=== PATIENT | female | born 1940 | race Caucasian/White ===

== ENCOUNTER 2018-08-10 05:56 | Day surgery (SDC) | payer MEDICARE ==
[2018-08-09 12:48] VITALS: BP 153/82
[~2018-08-10] VITALS: Ht 158.8 cm; Wt 61.2 kg
[~2018-08-10 05:56] MED LIST: ALBU18HF INFIL; ASCO10004 PO; CALC-483 PO; FISH1CAP PO; LACT1CAP37 PO; LEVO88TA2 PO; LIDOCAINE 4% TOPICAL SOLUTION 50 ML ONE; LIDOCAINE GEL 2%, 5ML ONE; LOSA50TA14 PO; VITA400C42 PO
[2018-08-10 06:42] VITALS: BP 153/82
[2018-08-10] MEDS ORDERED: MIDAZOLAM 1 MG/ML, 5ML ONE ×2 (07:19)
[2018-08-10] MEDS ORDERED: FENTANYL PF 100 MCG/2ML ONE (07:19)
[2018-08-10 07:45] LABS: INTERNATIONAL NORMALIZED RATIO 0.97 (0.93-1.1); PROTHROMBIN TIME 10.2 Seconds (9.6-11.5)
== END 2018-08-10 10:45 | disposition home or self-care (01) ==
LOC: OUT 05:56
PROVIDERS: ATTEND Internal Medicine
DX: C34.2 Malignant neoplasm of middle lobe, bronchus or lung (principal); I10 Essential (primary) hypertension; E11.9 Type 2 diabetes mellitus without complications; E78.5 Hyperlipidemia, unspecified; E03.9 Hypothyroidism, unspecified; Z72.89 Other problems related to lifestyle; Z79.01 Long term (current) use of anticoagulants; Z79.890 Hormone replacement therapy; Z79.899 Other long term (current) drug therapy; Z88.8 Allergy status to other drugs, medicaments and biological substances; Z82.61 Family history of arthritis; Z83.3 Family history of diabetes mellitus
CPT/HCPCS: 31624; 36415; 85610; 85730; 87015; 87070; 87102; 87116; 87205; 87206; 88112; 88305; 88312; 88341; 88342; 93005; 99152; 99153; J2250; J3010; 31622; 88108

== ENCOUNTER 2018-09-01 07:28 | Outpatient (CLI) | payer MEDICARE ==
[~2018-09-01 07:28] MED LIST changes: -LIDOCAINE 4% TOPICAL SOLUTION 50 ML ONE; -LIDOCAINE GEL 2%, 5ML ONE
[2018-09-01] MEDS ORDERED: GADOBUTROL 7.5 MMOL/7.5 ML PFS ONE (08:38)
== END 2018-09-01 23:59 | disposition home or self-care (01) ==
LOC: CFH 07:28
PROVIDERS: ATTEND Internal Medicine
DX: C34.2 Malignant neoplasm of middle lobe, bronchus or lung (principal); D32.0 Benign neoplasm of cerebral meninges; G93.0 Cerebral cysts; G31.9 Degenerative disease of nervous system, unspecified; R90.82 White matter disease, unspecified; I67.82 Cerebral ischemia
CPT/HCPCS: 70553; 78815; A9552; A9585

== ENCOUNTER 2018-09-13 10:23 | Outpatient (CLI) | payer MEDICARE ==
[2018-09-13] MEDS ORDERED: OMNIPAQUE 350 MG/ML, 75ML BOTTLE ONE (15:29)
== END 2018-09-13 23:59 | disposition home or self-care (01) ==
LOC: CFH 10:23
PROVIDERS: ATTEND Internal Medicine Hematology & Oncology
DX: C34.11 Malignant neoplasm of upper lobe, right bronchus or lung (principal); J98.11 Atelectasis; R91.8 Other nonspecific abnormal finding of lung field
CPT/HCPCS: 71260; Q9967

== ENCOUNTER 2018-09-14 05:37 | Day surgery (SDC) | payer MEDICARE ==
[~2018-09-14] VITALS: Ht 160 cm; Wt 60.0 kg
[2018-09-14 06:15] VITALS: BP 135/80
== END 2018-09-14 13:05 | disposition home or self-care (01) ==
LOC: OUT 05:37
PROVIDERS: ATTEND Internal Medicine
DX: C34.2 Malignant neoplasm of middle lobe, bronchus or lung (principal); I10 Essential (primary) hypertension; E11.9 Type 2 diabetes mellitus without complications; E03.9 Hypothyroidism, unspecified; Z79.890 Hormone replacement therapy; Z79.899 Other long term (current) drug therapy; Z88.2 Allergy status to sulfonamides; Z88.8 Allergy status to other drugs, medicaments and biological substances; Z91.041 Radiographic dye allergy status
CPT/HCPCS: 31623; 31627; 31628; 31632; 71045; 88112; 88172; 88173; 88177; 88305; J0330; J0690; J1100; J2405; J2704; J2710; J3010; J7120; 31629; 76000

== ENCOUNTER 2018-09-29 16:51 | Outpatient (CLI) | payer MEDICARE | END 2018-09-29 23:59 | disposition home or self-care (01) | LOC: CARD 16:51 | PROVIDERS: ATTEND Internal Medicine Hematology & Oncology | DX: C34.2 Malignant neoplasm of middle lobe, bronchus or lung (principal); R94.31 Abnormal electrocardiogram [ECG] [EKG] | CPT/HCPCS: 93005 ==

== ENCOUNTER 2018-10-03 15:24 | Outpatient (CLI) | payer MEDICARE | END 2018-10-03 23:59 | disposition home or self-care (01) | LOC: CFH 15:24 | PROVIDERS: ATTEND Internal Medicine Hematology & Oncology | DX: I08.2 Rheumatic disorders of both aortic and tricuspid valves (principal); I10 Essential (primary) hypertension; C34.2 Malignant neoplasm of middle lobe, bronchus or lung | CPT/HCPCS: 93306 ==

== ENCOUNTER 2019-01-02 13:06 | Outpatient (CLI) | payer MEDICARE | END 2019-01-02 23:59 | disposition home or self-care (01) | LOC: CFH 13:06 | PROVIDERS: ATTEND Internal Medicine Hematology & Oncology | DX: C34.2 Malignant neoplasm of middle lobe, bronchus or lung (principal); K76.89 Other specified diseases of liver; N85.2 Hypertrophy of uterus; Z91.041 Radiographic dye allergy status; Z88.8 Allergy status to other drugs, medicaments and biological substances | CPT/HCPCS: 71250; 74176 ==

== ENCOUNTER → 2019-03-20 | Outpatient (CLI) | payer MEDICARE ==
[~2019-03-20] MED LIST changes: +GADOTERATE 7.5 MMOL/15 ML SYR ONE; +VITA-74 PO; -VITA400C42 PO
== END | disposition home or self-care (01) ==
LOC: CFH 12:47
PROVIDERS: ATTEND Internal Medicine Hematology & Oncology
DX: C34.2 Malignant neoplasm of middle lobe, bronchus or lung (principal); D32.0 Benign neoplasm of cerebral meninges; G31.9 Degenerative disease of nervous system, unspecified; I67.82 Cerebral ischemia; R94.02 Abnormal brain scan
CPT/HCPCS: 70553; A9575

== ENCOUNTER → 2019-04-03 | Outpatient (CLI) | payer MEDICARE ==
[~2019-04-03] MED LIST changes: -GADOTERATE 7.5 MMOL/15 ML SYR ONE
== END | disposition home or self-care (01) ==
LOC: CFH 09:32
PROVIDERS: ATTEND Internal Medicine Hematology & Oncology
DX: C34.2 Malignant neoplasm of middle lobe, bronchus or lung (principal); K80.20 Calculus of gallbladder without cholecystitis without obstruction; I72.2 Aneurysm of renal artery; N28.89 Other specified disorders of kidney and ureter; J47.9 Bronchiectasis, uncomplicated; J98.11 Atelectasis
CPT/HCPCS: 71250; 74176

== ENCOUNTER → 2019-08-24 | Outpatient (CLI) | payer MEDICARE ==
[~2019-08-24] MED LIST changes: +OMNIPAQUE 350 MG/ML, 100ML BOTTLE ONE
== END | disposition home or self-care (01) ==
LOC: CFH 11:14
PROVIDERS: ATTEND Internal Medicine Hematology & Oncology
DX: C34.2 Malignant neoplasm of middle lobe, bronchus or lung (principal); K76.89 Other specified diseases of liver; K80.20 Calculus of gallbladder without cholecystitis without obstruction; I72.2 Aneurysm of renal artery; D25.9 Leiomyoma of uterus, unspecified; J98.11 Atelectasis; J47.9 Bronchiectasis, uncomplicated; R91.8 Other nonspecific abnormal finding of lung field
CPT/HCPCS: 71260; 74177; Q9967

== ENCOUNTER → 2019-11-29 | Outpatient (CLI) | payer MEDICARE ==
[~2019-11-29] MED LIST changes: +ASCO100018 PO; -ASCO10004 PO; -OMNIPAQUE 350 MG/ML, 100ML BOTTLE ONE; +OMNIPAQUE 350 MG/ML, 75ML BOTTLE ONE
== END | disposition home or self-care (01) ==
LOC: RAD 08:44
PROVIDERS: ATTEND Internal Medicine Hematology & Oncology
DX: C34.2 Malignant neoplasm of middle lobe, bronchus or lung (principal); J47.9 Bronchiectasis, uncomplicated; J98.4 Other disorders of lung; E04.1 Nontoxic single thyroid nodule; J98.11 Atelectasis; R91.1 Solitary pulmonary nodule
CPT/HCPCS: 71260; Q9967

== ENCOUNTER → 2020-03-20 | Outpatient (CLI) | payer MEDICARE ==
[~2020-03-20] MED LIST changes: +OMNIPAQUE 350 MG/ML, 100ML BOTTLE ONE; -OMNIPAQUE 350 MG/ML, 75ML BOTTLE ONE
== END | disposition home or self-care (01) ==
LOC: RAD 10:50
PROVIDERS: ATTEND Internal Medicine Hematology & Oncology
DX: C34.2 Malignant neoplasm of middle lobe, bronchus or lung (principal); S32.010A Wedge compression fracture of first lumbar vertebra, initial encounter for closed fracture; J98.11 Atelectasis; J98.4 Other disorders of lung; J47.9 Bronchiectasis, uncomplicated; R91.8 Other nonspecific abnormal finding of lung field; K40.90 Unilateral inguinal hernia, without obstruction or gangrene, not specified as recurrent; X58.XXXA Exposure to other specified factors, initial encounter; Y93.89 Activity, other specified; Y92.89 Other specified places as the place of occurrence of the external cause; Y99.8 Other external cause status
CPT/HCPCS: 71260; 74177; Q9967

== ENCOUNTER → 2020-04-02 | Outpatient (CLI) | payer MEDICARE ==
[~2020-04-02] MED LIST changes: -OMNIPAQUE 350 MG/ML, 100ML BOTTLE ONE
== END | disposition home or self-care (01) ==
LOC: RAD 10:46
PROVIDERS: ATTEND Internal Medicine Hematology & Oncology
DX: C34.2 Malignant neoplasm of middle lobe, bronchus or lung (principal); M48.56XA Collapsed vertebra, not elsewhere classified, lumbar region, initial encounter for fracture; Z79.899 Other long term (current) drug therapy
CPT/HCPCS: 78306; A9503

== ENCOUNTER → 2020-04-09 | Outpatient (CLI) | payer MEDICARE | END | disposition home or self-care (01) | LOC: CFH 10:42 | PROVIDERS: ATTEND Internal Medicine Hematology & Oncology | DX: M81.0 Age-related osteoporosis without current pathological fracture (principal); M85.89 Other specified disorders of bone density and structure, multiple sites; C34.2 Malignant neoplasm of middle lobe, bronchus or lung; Z79.899 Other long term (current) drug therapy | CPT/HCPCS: 77080 ==

== ENCOUNTER 2020-08-09 12:33 | Inpatient (IN) | payer MEDICARE ==
[~2020-08-09] VITALS: Ht 157.5 cm; Wt 54.5 kg
[~2020-08-09 12:33] MED LIST changes: -LACT1CAP37 PO; +LACT1CAP47 PO
[2020-08-09] MEDS ORDERED: CLOPIDOGREL 300 MG TABLET PO ONE (14:30)
[2020-08-09 17:21] VITALS: BP 162/74
[2020-08-09] MEDS ORDERED: ACETAMINOPHEN 650 MG/20.3 ML UDC PO PRN (19:30)
[2020-08-09] MEDS ORDERED: ENALAPRILAT 1.25 MG/ML, 2ML IV PRN (19:30)
[2020-08-09] MEDS ORDERED: SENNA/DOCUSATE TABLET PO PRN (19:30)
[2020-08-09] MEDS ORDERED: ONDANSETRON 2MG/ML, 2ML IVPush PRN (19:30)
[2020-08-09] MEDS ORDERED: ONDANSETRON 4 MG TABLET PO PRN (19:30)
[2020-08-09] MEDS ORDERED: DOCUSATE 100 MG CAPSULE PO PRN (19:30)
[2020-08-09] MEDS ORDERED: POLYETHYLENE GLYCOL 17 GM PACKET PO PRN (19:30)
[2020-08-09] MEDS ORDERED: BISACODYL 10 MG SUPP PR PRN (19:30)
[2020-08-09 19:43] VITALS: BP 169/73
[2020-08-09] MEDS: SODIUM CHLORIDE 0.9% 1,000 ML IV SCH (20:24)
[2020-08-09] MEDS ORDERED: [UNRECOGNIZED DRUG - REMARK] MC SCH (20:30)
[2020-08-09] MEDS: HEPARIN 5,000 UNITS/ML, 1ML SQ SCH (20:44)
[2020-08-09] MEDS ORDERED: ATORVASTATIN 80 MG TABLET PO SCH (21:00)
[2020-08-10] VITALS: BP_SYST 171; BP_SYST 176; BP_DIAS 71; BP_DIAS 76
[2020-08-10 00:56] VITALS: BP 162/74
[2020-08-10] MEDS: HEPARIN 5,000 UNITS/ML, 1ML SQ SCH ×2 (03:35→09:28)
[2020-08-10 04:14] VITALS: BP 166/77
[2020-08-10 05:20] LABS: BASOPHILS % (AUTO) 1 % (0-1); EOSINOPHILS % (AUTO) 4 % (1-7); LYMPHOCYTES % (AUTO) 14 % (22-44); MEAN CORPUSCULAR HEMOGLOBIN 32.7 pg (27.0-34.8); MEAN CORPUSCULAR HGB CONC 34.5 g/dL (32.4-35.8); MEAN PLATELET VOLUME 9.8 fL (7.4-10.4); MONOCYTES % (AUTO) 10 % (2-9); NEUTROPHILS % (AUTO) 72 % (42-75); PLATELET COUNT 109 x10^3/uL (130-400); RED BLOOD COUNT 4.67 x10^6/uL (3.82-5.3); RED CELL DISTRIBUTION WIDTH 14.3 % (9.6-15.2)
[2020-08-10 05:29] LABS: ALBUMIN 3.5 g/dL (3.4-5.0); ANION GAP 4 mmol/L (5-15); CALCIUM 8.4 mg/dL (8.5-10.1); CHLORIDE 111 mmol/L (98-107)
[2020-08-10 05:34] LABS: ALANINE AMINOTRANSFERASE 33 U/L (12-78); ALKALINE PHOSPHATASE 81 U/L (45-117); BILIRUBIN,TOTAL 0.6 mg/dL (0.2-1.0); CHOL/HDL RATIO 3.6; CHOLESTEROL, TOTAL 200 mg/dL (140-239); CREATININE 1.03 mg/dL (0.55-1.02); HDL CHOL % 28 % (28-40); HDL CHOLESTEROL (DIRECT) 55 mg/dL (40-60); LDL CHOLESTEROL,CALCULATED 120 mg/dL (54-169); LDL/HDL RATIO 2.2 (0.5-3.0); TOTAL PROTEIN 6.6 g/dL (6.4-8.2); TRIGLYCERIDES 126 mg/dL (50-200); VLDL CHOLESTEROL 25 mg/dL (0-25)
[2020-08-10 06:54] VITALS: BP 151/80
[2020-08-10] MEDS: SODIUM CHLORIDE 0.9% 1,000 ML IV SCH (07:57)
[2020-08-10] MEDS ORDERED: LOSARTAN 50MG TABLET PO SCH (09:00)
[2020-08-10] MEDS ORDERED: ASPIRIN 81 MG TABLET CHEW PO/NG SCH (09:00)
[2020-08-10] MEDS ORDERED: ASCORBIC ACID 500 MG TABLET PO SCH (09:00)
[2020-08-10] MEDS ORDERED: GADOTERATE 7.5 MMOL/15ML SYR ONE (10:15)
[2020-08-10] MEDS ORDERED: ASPI81TA45 PO (12:28)
[2020-08-10] MEDS ORDERED: ATOR40TA78 PO (12:28)
[2020-08-10] MEDS ORDERED: CLOP75TA52 PO (12:28)
[2020-08-10] MEDS ORDERED: LOSA50TA14 PO (12:28)
[2020-08-10 12:30] VITALS: BP 166/75
== END 2020-08-10 15:55 | disposition home or self-care (01) | DRG 65 ==
LOC: ED 13:27 → EDIP 14:32 → 4EST 16:21 → 4WST 23:06 → DCLOUNGE 08-10 15:40
PROVIDERS: ADMIT Family Medicine; ATTEND Internal Medicine
DX: I63.89 Other cerebral infarction (principal); C34.90 Malignant neoplasm of unspecified part of unspecified bronchus or lung; G81.94 Hemiplegia, unspecified affecting left nondominant side; R29.700 NIHSS score 0; E03.9 Hypothyroidism, unspecified; E78.5 Hyperlipidemia, unspecified; F80.81 Childhood onset fluency disorder; I10 Essential (primary) hypertension; I73.9 Peripheral vascular disease, unspecified; M81.0 Age-related osteoporosis without current pathological fracture; D69.59 Other secondary thrombocytopenia; T50.905A Adverse effect of unspecified drugs, medicaments and biological substances, initial encounter; Z79.82 Long term (current) use of aspirin; Z88.8 Allergy status to other drugs, medicaments and biological substances; Z88.2 Allergy status to sulfonamides; Z83.3 Family history of diabetes mellitus; Z82.49 Family history of ischemic heart disease and other diseases of the circulatory system; Z85.118 Personal history of other malignant neoplasm of bronchus and lung; Z86.73 Personal history of transient ischemic attack (TIA), and cerebral infarction without residual deficits; Y92.89 Other specified places as the place of occurrence of the external cause
CPT/HCPCS: 36415; 70553; 80053; 80061; 83036; 84443; 85025; 93005; 93306; 99285; G0378; A9575; J7030